=== PATIENT | female | born 1985 | race Hispanic/Latino ===

== ENCOUNTER 2025-05-13 00:55 | Day surgery (SDC) | payer BC, SELFPAY ==
[2025-05-10 14:49] VITALS: BMI 31.9
--- NOTE | 2025-05-10 14:50 | PC.NURSE ---
Report to the Outpatient Waiting Room, entrance under the green pavilion located off [facility], at time _0700_ on date _[id number]_. Planned Procedure Time: _0900_.? Time changes happen often and if your time is changed the preop area will call you the afternoon before. - You and your visitor will be asked to self-screen and do not enter if you have any COVID symptoms. Please call surgeon if you need to reschedule. - A mask is optional within the hospital at this time. Patients may have clear liquids (water, carbonated beverages, clear teas, apple juice) until 3 hours prior to surgery with a maximum of 20 ounces. - No food from midnight until time of surgery and no smoking, or chewing tobacco (or any form of nicotine). No chewing gum, candy or mints. Take only the following medications with a SIP of water on the morning of surgery: ____None DO NOT STOP ANY OF YOUR OTHER PRESCRIPTION MEDICATIONS PRIOR TO SURGERY EXCEPT THE FOLLOWING Hold all vitamins and supplements for 3 days per anesthesiologist. Medications to discontinue per physician Date to take last dose___Stop now____ Please no make-up, nail belgian, hairspray, perfume, deodorant, or body powder the day of surgery.? No jewelry (including any body piercings) or valuables the day of surgery, leave them at home.? Please take a shower or bath the night before, or the morning of, surgery with an antibacterial soap.? Wear comfortable, loose fitting clothing. - Jewelry must be removed prior to entering the operating room.? Rings and piercings that are not removed may be cut off. - The hospital will not accept responsibility for valuables.? - Please leave all valuables, including medications, at home the day of surgery. If you are going home after surgery, a licensed newspaper delivery driver must drive you home.? - NO public transportation without another adult if you receive anesthesia. - We recommend that an adult stay with you for 24 hours following discharge. - We also recommend that you do not drive, make important decision, drink alcoholic beverages, or take any drugs that were not prescribed by your health care provider for at least 24 hours after your discharge time. Follow any additional instructions given to you from your surgeon. Telephone instructions given to ___Cintya__and asked if any additional questions and then verbalized understanding. Patient advised to call surgeon office or pre surgery nurse liaison [phone] if any additional questions.
--- OUTSIDE RECORDS SUMMARY | 2025-05-13 01:00 | XMS_ITS | Data Portability ---
Author Organization [facility] Address [address] [place] [address] [place] [address] Assessment Encounter Date Assessment Date Assessment LastModified by Organization Details LastModified Time 07/05/2024 07/05/2024 Annual gynecological exam performed. Patient will come back in a year unless there are new symptoms. Not available 07/05/2024 16:51:00 Plan of Treatment Reminders Order Date Submit Date Provider Last Modified By Organization Details Last Modified Time Details Appointments SURG Suction D&C 2024 09:00A Chip VILLEGAS MD Not available Not available Not available SURG POST OP 2024 02:15P Chip VILLEGAS MD Not available Not available Not available Lab test, urine 2024 025 [email or web address] [facility], [address], [address], [place], [address], 04/22/2025 16:13:38 CBC w/ auto diff 2023 024 [facility] (Lab), [address], [place], [address], 07/06/2024 12:20:17 CMP, serum or plasma 2023 024 [facility] (Lab), [address], [place], [address], 07/06/2024 12:20:19 lipid panel, blood 2023 024 [facility] (Lab), [address], [place], [address], 07/06/2024 12:20:18 TSH, serum or plasma 2023 024 [facility] (Lab), [address] [facility] [address], [place], [address], 07/06/2024 12:20:18 25-hydrox yvitamin D2 + 25-hydrox yvitamin D3, QN, serum or plasma 2023 024 [facility] (Lab), [address] [facility], [place], [address], 07/06/2024 12:20:20 Referral None recorded. Procedures None recorded. Surgeries dilation & curettage (SURG) 2024 025 [email or web address] [facility], [address], [place], [address], 05/10/2025 13:30:52 Imaging US, obstetric , 1st trimester 2024 025 [id number] [facility], [facility] [address], [place], [address], 04/22/2025 15:56:40 Medication Orders None recorded. Patient TargetsNo targets recorded. Patient InstructionsNo instructions recorded. Reason for Referral None Reported. Results Created Date Observation Date Name Description Value Unit Range Abnormal Flag Note LastModifiedBy Organization Detail LastModifiedTime 07/04/20 23 07/04/2023 IMAGE GUIDE D PAP AND HPV REGAR DLESS image guided Pap, HPV regardless of Pap result SEE RESULT S BELOW CASE REPOR T: Cytol ogy Gynec ologi lizeth Repor t Case: [id number] Autho harriet g Provi trevor: Mauri Villegas MD Colle cted: 07/04 1618 Order ing Locat ion: [place] [facility] Recei mohan: 07/05 0700 First Scree n: Sherm an, [place] Speci men: Scree trish Pap - Image d, Cervi x STATE MENT OF ADEQU ACY: Satis facto ry for evalu ation Trans forma tion zone compo nent prese nt FINAL DIAGN OSIS: Negat gerardo for Intra epith elial Lesio arielle or Laron patton (NIL) . Elect brodykathy wright ron d by [place] Levy on 2022 at 7:32 PM ----- ----- ----- ----- ----- ----- ----- ----- ----- ----- ----- ----- ----- ----- ----- ----- ----- ---- HPV RESUL TS: HPV mRNA E6/E7 : No HPV mRNA Detec jovon NOTE: This high risk HPV mRNA assay detec ts fourt een high- risk HPV types (16, 18, 31, 33, 35, 39, 45, 51, 52, 56, 58, 59, 66, 68) witho ut diffe renti ation . COMME NT: This speci men was revie wed by a Cytot echno logis t and/o r Patho logis t (as indic ated in this repor t) after evalu ation using the Thinp rep Imagi ng Syste m. CLINI LIZETH INFOR MATIO N: Menst rual Statu s: LMP (if appli cable ): Clini lizeth Histo ry/Pr eviou s Pap: Type of Neopl bakari (if appli cable ): Signi fican t Clini lizeth Findi ngs: Other Histo ry: Hormo minna (if appli cable ): PAP EDUCA MAMTA L NOTE: The Pap Test is a scree trish test with an inher ent false negat gerardo rate. Liqui d-bas ed sampl ing may decre ase, but will not elimi jim, false negat gerardo resul ts. A negat gerardo resul t does not precl ude the prese nce and/o r devel opmen t of disea se, since the prese nce of abnor mal cells in the sampl e depen ds on the locat ion of the lesio n and sampl ing techn ique. Magy nued regul ar scree trish is the best metho d of cance r preve ntion . If repor jovon cytol ogic findi ng do not corre late with physi lizeth and/o r histo rical findi ngs, rosi fox ion is recom ryan d, as clini indira whitt nted. Not Available [facility] (Lab) [address], [place], [address], 07/05/2023 20:34:53 07/22/20 23 07/22/2023 CBC W/DIF F WBC 5.6 10'3/ uL 3.6-10 .2 Not Available [facility] (Lab) [address], [place], [address], 07/23/2023 05:06:51 07/22/20 23 07/22/2023 CBC W/DIF F RBC 4.09 10'6/ uL (based on docume nted legal sex) 4.10-5 .30 low Not Available [facility] (Lab) [address], [place], [address], 07/23/2023 05:06:51 07/22/20 23 07/22/2023 CBC W/DIF F HGB 12.8 g/dL (based on docume nted legal sex) 11.9-1 5.8 Not Available [facility] (Lab) [address] [place], [address], 07/23/2023 05:06:51 07/22/20 23 07/22/2023 CBC W/DIF F HCT 39.0 % (based on docume nted legal sex) 37.4-4 8.3 Not Available [facility] (Lab) [address], [place], [address], 07/23/2023 05:06:51 07/22/20 23 07/22/2023 CBC W/DIF F MCV 95.4 fL 82.0-9 9.0 Not Available [facility] (Lab) [address] [place], [address], 07/23/2023 05:06:51 07/22/20 23 07/22/2023 CBC W/DIF F MCH 31.3 pg 27.0-3 3.0 Not Available [facility] (Lab) [address], [place], [address], 07/23/2023 05:06:51 07/22/20 23 07/22/2023 CBC W/DIF F MCHC 32.8 g/dL 32.0-3 6.0 Not Available [facility] (Lab) [address], [place], [address], 07/23/2023 05:06:51 07/22/20 23 07/22/2023 CBC W/DIF F RDW 12.7 % 11.0-1 5.0 Not Available [facility] (Lab) [address] [facility] [address], [place], [address], 07/23/2023 05:06:51 07/22/20 23 07/22/2023 CBC W/DIF F plt 334 10'3/ uL 150-45 0 Not Available [facility] (Lab) [address], [place], [address], 07/23/2023 05:06:51 07/22/20 23 07/22/2023 CBC W/DIF F MPV 10.6 fL 9.8-12 .7 Not Available [facility] (Lab) [address] [facility] [address], [place], [address], 07/23/2023 05:06:51 07/22/20 23 07/22/2023 CBC W/DIF F NRBC's 0.0 % 0 Not Available [facility] (Lab) [address], [place], [address], 07/23/2023 05:06:51 07/22/20 23 07/22/2023 CBC W/DIF F absolute NRBCs 0.0 10'3/ uL 0 Not Available [facility] (Lab) [address], [place], [address], 07/23/2023 05:06:51 07/22/20 23 07/22/2023 CBC W/DIF F neutrophils 63.9 % 37.0-7 2.0 Not Available [facility] (Lab) [address] [facility] [address], [place], [address], 07/23/2023 05:06:51 07/22/20 23 07/22/2023 CBC W/DIF F lymphocytes 26.7 % 16.0-4 8.0 Not Available [facility] (Lab) [address] [facility] [address], [place], [address], 07/23/2023 05:06:51 07/22/20 23 07/22/2023 CBC W/DIF F monocytes 6.8 % 4.0-14 .0 Not Available [facility] (Lab) [address] [facility] [address], [place], [address], 07/23/2023 05:06:51 07/22/20 23 07/22/2023 CBC W/DIF F eosinophils 2.0 % 0.0-9. 0 Not Available [facility] (Lab) [address], [place], [address], 07/23/2023 05:06:51 07/22/20 23 07/22/2023 CBC W/DIF F basophils 0.4 % 0.0-2. 0 Not Available [facility] (Lab) [address], [place], [address], 07/23/2023 05:06:51 07/22/20 23 07/22/2023 CBC W/DIF F immature granulocytes 0.2 % no define d refere nce range Not Available [facility] (Lab) [address], [place], [address], 07/23/2023 05:06:51 07/22/20 23 07/22/2023 CBC W/DIF F absolute neutrophils 3.6 10'3/ uL 1.1-6. 0 Not Available [facility] (Lab) [address], [place], [address], 07/23/2023 05:06:51 07/22/20 23 07/22/2023 CBC W/DIF F absolute lymphocytes 1.5 10'3/ uL 0.7-3. 4 Not Available [facility] (Lab) [address], [place], [address], 07/23/2023 05:06:51 07/22/20 23 07/22/2023 CBC W/DIF F absolute monocytes 0.4 10'3/ uL 0.3-1. 0 Not Available [facility] (Lab) [address], [place], [address], 07/23/2023 05:06:51 07/22/20 23 07/22/2023 CBC W/DIF F absolute eosinophils 0.1 10'3/ uL 0.0-0. 6 Not Available [facility] (Lab) [address], [place], [address], 07/23/2023 05:06:51 07/22/20 23 07/22/2023 CBC W/DIF F absolute basophils 0.0 10'3/ uL 0.0-0. 1 Not Available [facility] (Lab) [address], [place], [address], 07/23/2023 05:06:51 07/22/20 23 07/22/2023 CBC W/DIF F absolute immature granulocytes 0.0 10'3/ uL 0.00-0 .10 2022 2:10 AM: P indic ates parti al resul ts on a panel have been relea sed. Addit ional resul ts will follo w. 2022 2:10 AM: This resul t has been final verif ied. No addit ional or argueta ed resul ts are expec jovon. Not Available [facility] (Lab) [address], [place], [address], 07/23/2023 05:06:51 07/22/20 23 07/22/2023 LIPID PANEL ,AMA (LDL- CALC) total cholesterol 154 mg/dL 0-199 Not Available [facility] (Lab) [address] [place], [address], 07/23/2023 05:06:52 07/22/20 23 07/22/2023 LIPID PANEL ,AMA (LDL- CALC) triglyceride s 199 mg/dL 0.00-1 50.00 high NCEP Refer ence Value s for Trigl yceri carlitos: Opal l: <150 mg/dL Borde rline High: 150 - 199 mg/dL High: 200 - 499 mg/dL Very High: >/= 500 mg/dL Not Available [facility] (Lab) [address], [place], [address], 07/23/2023 05:06:52 07/22/2007/22/2023 LIPID PANEL ,AMA (LDL- CALC) HDL cholesterol 38 mg/dL >40 low Not Available [facility] (Lab) [address], [place], [address], 07/23/2023 05:06:52 07/22/2007/22/2023 LIPID PANEL ,AMA (LDL- CALC) LDL cholesterol 86 mg/dL 0-99 Cutof f value s recom yran d by the Natio nal Nan stero l Educa tion Progr am: PAYAL ABLE: Nan stero l <200 mg/dL LDL <100 mg/dL BORDE RLINE : Nan stero l 200-2 39 mg/dL LDL 101-1 59 mg/dL HIGHE R RISK: Nan stero l >240 mg/dL LDL >160 mg/dL , HDL <40 mg/dL Not Available [facility] (Lab) [address] [place], [address], 07/23/2023 05:06:52 07/22/20 23 07/22/2023 LIPID PANEL ,AMA (LDL- CALC) non-HDL cholesterol 116 mg/dL no refere nce range A reaso nable goal for non-H DL nan stero l is one that is 30 mg/dL highe r than the LDL nan stero l goal. Not Available [facility] (Lab) [address], [place], [address], 07/23/2023 05:06:52 07/22/20 23 07/22/2023 LIPID PANEL ,AMA (LDL- CALC) chol/HDL ratio 4.1 . 0.0-5. 0 On February 08, 2023, [facility] labor atori es argueta ed the equat ion for calcu latin g estim ated low-d ensit y lipop rotei n-cho leste rol (LDL- C) from the Fried george equat ion to the Nessa n/Hop todd equat ion. This new equat ion is only valid for lipid panel s with trigl yceri carlitos < 400 mg/dL . Studi es have demon strat ed that this new equat ion will impro ve the accur acy of LDL-C , espec ially in scena levine when LDL-C leon ntrat ions are relat ively low (< 100 mg/dL ), trigl yceri carlitos are eleva jovon, or patie nt is non-f astin g. Refer ences : - Nessa guzmán, Ray Soliz, Alf Mathias , [facility] tammi lópez, Chaitanya Chadwick, Chaitanya kate, Adalberto zhang , and Shiv Gardiner . 2013. Comp ariso n of a Novel Metho d vs the Fried george Equat ion for Estim ating Low-D ensit y Lipop rotei n Nan stero l Level s from the Stand sarkis Lipid Profi le. ED: The Journ al of the Ameri can Medic al Assoc iatio n 310 (19): 2060- . - Priscila daily V, Marleny J, Merlyn daily A, Yary M, Khurram austin R, Selena daily E, Elsa zhang RS, Abdifatah SR, Nessa guzmán SS. Fast ing Versu s Nonfa sting and Low-D ensit y Lipop rotei n Nan stero l Accur acy. Leopoldou eula n. 2017Oct 18;137 (1):1 0-19. Not Available [facility] (Lab) [address], [place], [address], 07/23/2023 05:06:52 07/22/20 23 07/22/2023 CMP(C OMPRE HENSI VE METAB OLIC PANEL ) sodium 141 mmol/ L 133-14 6 Not Available [facility] (Lab) [address], [place], [address], 07/23/2023 05:06:52 07/22/20 23 07/22/2023 CMP(C OMPRE HENSI VE METAB OLIC PANEL ) potassium 3.6 mmol/ L 3.5-5. 1 Not Available [facility] (Lab) [address], [place], [address], 07/23/2023 05:06:52 07/22/20 23 07/22/2023 CMP(C OMPRE HENSI VE METAB OLIC PANEL ) chloride 105 mmol/ L 98-107 Not Available [facility] (Lab) [address], [place], [address], 07/23/2023 05:06:52 07/22/20 23 07/22/2023 CMP(C OMPRE HENSI VE METAB OLIC PANEL ) carbon dioxide 26 mmol/ L 21-31 Not Available [facility] (Lab) [address] [place], [address], 07/23/2023 05:06:52 07/22/20 23 07/22/2023 CMP(C OMPRE HENSI VE METAB OLIC PANEL ) anion gap 10 mmol/ L 4-13 Not Available [facility] (Lab) [address] [place], [address], 07/23/2023 05:06:52 07/22/20 23 07/22/2023 CMP(C OMPRE HENSI VE METAB OLIC PANEL ) blood urea nitrogen 9 mg/dL 7-25 Not Available [facility] (Lab) [address], [place], [address], 07/23/2023 05:06:52 07/22/20 23 07/22/2023 CMP(C OMPRE HENSI VE METAB OLIC PANEL ) creatinine 0.61 mg/dL 0.60-1 .30 Not Available [facility] (Lab) [address], [place], [address], 07/23/2023 05:06:52 07/22/20 23 07/22/2023 CMP(C OMPRE HENSI VE METAB OLIC PANEL ) egfrcr (CKD-epi 2020) >90 mL/mi n/1.7 3_m2 >=60 Not Available [facility] (Lab) [address], [place], [address], 07/23/2023 05:06:52 07/22/20 23 07/22/2023 CMP(C OMPRE HENSI VE METAB OLIC PANEL ) calcium 9.5 mg/dL 8.3-10 .5 Not Available [facility] (Lab) [address], [place], [address], 07/23/2023 05:06:52 07/22/20 23 07/22/2023 CMP(C OMPRE HENSI VE METAB OLIC PANEL ) glucose 103 mg/dL 70-100 high Not Available [facility] (Lab) [address], [place], [address], 07/23/2023 05:06:52 07/22/20 23 07/22/2023 CMP(C OMPRE HENSI VE METAB OLIC PANEL ) protein, total 7.0 g/dL 6.4-8. 3 Not Available [facility] (Lab) [address], [place], [address], 07/23/2023 05:06:52 07/22/20 23 07/22/2023 CMP(C OMPRE HENSI VE METAB OLIC PANEL ) albumin 4.3 g/dL 3.5-5. 0 Not Available [facility] (Lab) [address], [place], [address], 07/23/2023 05:06:52 07/22/20 23 07/22/2023 CMP(C OMPRE HENSI VE METAB OLIC PANEL ) ALT 15 units /L 9-43 Not Available [facility] (Lab) [address], [place], [address], 07/23/2023 05:06:52 07/22/20 23 07/22/2023 CMP(C OMPRE HENSI VE METAB OLIC PANEL ) alkaline phosphatase 76 units /L 34-104 Not Available [facility] (Lab) [address], [place], [address], 07/23/2023 05:06:52 07/22/20 23 07/22/2023 CMP(C OMPRE HENSI VE METAB OLIC PANEL ) AST 15 units /L 13-39 Not Available [facility] (Lab) [address], [place], [address], 07/23/2023 05:06:52 07/22/20 23 07/22/2023 CMP(C OMPRE HENSI VE METAB OLIC PANEL ) bilirubin, total 0.6 mg/dL 0.2-1. 2 Not Available [facility] (Lab) [address], [place], [address], 07/23/2023 05:06:52 07/22/2007/22/2023 TSH, REFLE X FREE T4 TSH 3.93 uIU/m L 0.30-5 .33 Not Available [facility] (Lab) [address] [place], [address], 07/23/2023 05:06:53 07/22/20 23 07/22/2023 VITAM IN D, 25-OH (TOTA L D2/D3 ) vitamin D, 25-hydroxy, total 19.3 NG/mL 30.0-1 00.0 low Sugge stive of Defic iency : <20 ng/mL Sugge stive of Insuf ficie ncy: 20-29 ng/mL Sugge stive of Suffi cienc y: 30-10 0 ng/mL Sugge stive of Toxic ity: >150 ng/mL Not Available [facility] (Lab) [address], [place], [address], 07/23/2023 05:06:53 07/05/20 24 07/05/2024 CBC W/DIF F WBC 6.1 10'3/ uL 3.5-10 .5 Not Available [facility] (Lab) [address], [place], [address], 07/06/2024 12:20:17 07/05/20 24 07/05/2024 CBC W/DIF F RBC 4.30 10'6/ uL (based on docume nted legal sex) 3.80-5 .20 Not Available [facility] (Lab) [address], [place], [address], 07/06/2024 12:20:17 07/05/20 24 07/05/2024 CBC W/DIF F HGB 13.3 g/dL (based on docume nted legal sex) 11.6-1 5.4 Not Available [facility] (Lab) [address], [place], [address], 07/06/2024 12:20:17 07/05/20 24 07/05/2024 CBC W/DIF F HCT 41.2 % (based on docume nted legal sex) 34.0-4 5.0 Not Available [facility] (Lab) [address], [place], [address], 07/06/2024 12:20:17 07/05/20 24 07/05/2024 CBC W/DIF F MCV 95.8 fL 80.0-9 9.0 Not Available [facility] (Lab) [address], [place], [address], 07/06/2024 12:20:17 07/05/20 24 07/05/2024 CBC W/DIF F MCH 30.9 pg 27.0-3 4.0 Not Available [facility] (Lab) [address], [place], [address], 07/06/2024 12:20:17 07/05/20 24 07/05/2024 CBC W/DIF F MCHC 32.3 g/dL 32.0-3 5.5 Not Available [facility] (Lab) [address], [place], [address], 07/06/2024 12:20:17 07/05/20 24 07/05/2024 CBC W/DIF F RDW 13.1 % 11.0-1 5.0 Not Available [facility] (Lab) [address], [place], [address], 07/06/2024 12:20:17 07/05/20 24 07/05/2024 CBC W/DIF F plt 336 10'3/ uL 150-40 0 Not Available [facility] (Lab) [address], [place], [address], 07/06/2024 12:20:17 07/05/20 24 07/05/2024 CBC W/DIF F MPV 10.5 fL 8.8-12 .1 Not Available [facility] (Lab) [address], [place], [address], 07/06/2024 12:20:17 07/05/20 24 07/05/2024 CBC W/DIF F NRBC's 0.0 % 0.0 Not Available [facility] (Lab) [address], [place], [address], 07/06/2024 12:20:17 07/05/20 24 07/05/2024 CBC W/DIF F absolute NRBCs 0.0 10'3/ uL no refere nce range establ ished Not Available [facility] (Lab) [address], [place], [address], 07/06/2024 12:20:17 07/05/20 24 07/05/2024 CBC W/DIF F neutrophils 55.9 % 34.0-7 3.0 Not Available [facility] (Lab) [address], [place], [address], 07/06/2024 12:20:17 07/05/20 24 07/05/2024 CBC W/DIF F lymphocytes 31.4 % 15.0-5 0.0 Not Available [facility] (Lab) [address], [place], [address], 07/06/2024 12:20:17 07/05/20 24 07/05/2024 CBC W/DIF F monocytes 9.6 % 1.0-15 .0 Not Available [facility] (Lab) [address], [place], [address], 07/06/2024 12:20:17 07/05/20 24 07/05/2024 CBC W/DIF F eosinophils 2.0 % 0.0-8. 0 Not Available [facility] (Lab) [address], [place], [address], 07/06/2024 12:20:17 07/05/20 24 07/05/2024 CBC W/DIF F basophils 0.8 % 0.0-2. 0 Not Available [facility] (Lab) [address], [place], [address], 07/06/2024 12:20:17 07/05/20 24 07/05/2024 CBC W/DIF F immature granulocytes 0.3 % no define d refere nce range Not Available [facility] (Lab) [address] [place], [address], 07/06/2024 12:20:17 07/05/20 24 07/05/2024 CBC W/DIF F absolute neutrophils 3.4 10'3/ uL 1.5-8. 0 Not Available [facility] (Lab) [address] [facility], [place], [address], 07/06/2024 12:20:17 07/05/20 24 07/05/2024 CBC W/DIF F absolute lymphocytes 1.9 10'3/ uL 1.0-4. 0 Not Available [facility] (Lab) [address] [facility], [place], [address], 07/06/2024 12:20:17 07/05/20 24 07/05/2024 CBC W/DIF F absolute monocytes 0.6 10'3/ uL 0.2-1. 0 Not Available [facility] (Lab) [address] [facility], [place], [address], 07/06/2024 12:20:17 07/05/20 24 07/05/2024 CBC W/DIF F absolute eosinophils 0.1 10'3/ uL 0.0-0. 6 Not Available [facility] (Lab) [address] [facility] [address], [place], [address], 07/06/2024 12:20:17 07/05/20 24 07/05/2024 CBC W/DIF F absolute basophils 0.1 10'3/ uL 0.0-0. 3 Not Available [facility] (Lab) [address] [facility] [address], [place], [address], 07/06/2024 12:20:17 07/05/20 24 07/05/2024 CBC W/DIF F absolute immature granulocytes 0.0 10'3/ uL 0.00-0 .10 2023 7:27 AM: P indic ates parti al resul ts on a panel have been relea sed. Addit ional resul ts will follo w. 2023 7:27 AM: This resul t has been final verif ied. No addit ional or argueta ed resul ts are expec jovon. Not Available [facility] (Lab) [address], [place], [address], 07/06/2024 12:20:17 07/05/20 24 07/05/2024 TSH, REFLE X FREE T4 TSH 4.34 uIU/m L 0.30-5 .33 Not Available [facility] (Lab) [address] [place], [address], 07/06/2024 12:20:18 07/05/20 24 07/05/2024 LIPID PANEL ,AMA (LDL- CALC) total cholesterol 156 mg/dL 0-199 Not Available [facility] (Lab) [address] [place], [address], 07/06/2024 12:20:18 07/05/20 24 07/05/2024 LIPID PANEL ,AMA (LDL- CALC) triglyceride s 177 mg/dL 0-150 high NCEP Refer ence Value s for Trigl yceri carlitos: Opal l: <150 mg/dL Borde rline High: 150 - 199 mg/dL High: 200 - 499 mg/dL Very High: >/= 500 mg/dL Not Available [facility] (Lab) [address] [place], [address], 07/06/2024 12:20:18 07/05/20 24 07/05/2024 LIPID PANEL ,AMA (LDL- CALC) HDL cholesterol 46 mg/dL >40 Not Available [facility] (Lab) [address] [place], [address], 07/06/2024 12:20:18 07/05/20 24 07/05/2024 LIPID PANEL ,AMA (LDL- CALC) LDL cholesterol 83 mg/dL 0-99 Cutof f value s recom ryan d by the Natio nal Nan stero l Educa tion Progr am: PAYAL ABLE: Nan stero l <200 mg/dL LDL <100 mg/dL BORDE RLINE : Nan stero l 200-2 39 mg/dL LDL 101-1 59 mg/dL HIGHE R RISK: Nan stero l >240 mg/dL LDL >160 mg/dL , HDL <40 mg/dL Not Available [facility] (Lab) [address] [place], [address], 07/06/2024 12:20:18 07/05/20 24 07/05/2024 LIPID PANEL ,AMA (LDL- CALC) non-HDL cholesterol 110 mg/dL no refere nce range A reaso nable goal for non-H DL nan stero l is one that is 30 mg/dL highe r than the LDL nan stero l goal. Not Available [facility] (Lab) [address], [place], [address], 07/06/2024 12:20:18 07/05/20 24 07/05/2024 LIPID PANEL ,AMA (LDL- CALC) chol/HDL ratio 3.4 . 0.0-5. 0 On February 08, 2023, [facility] labor atori guillermo argueta ed the equat ion for calcu latin g estim ated low-d ensit y lipop rotei n-cho leste rol (LDL- C) from the Fried george equat ion to the Nessa arielle/Hop kins equat ion. This new equat ion is only valid for lipid panel s with trigl yceri carlitos < 400 mg/dL . Studi es have demon strat ed that this new equat ion will impro ve the accur acy of LDL-C , espec ially in scena levine when LDL-C leon ntrat ions are relat ively low (< 100 mg/dL ), trigl yceri carlitos are eleva jovon, or patie nt is non-f astin g. Refer ences : - Nessa guzmán, Ray Soliz, Alf Mathias , [facility] l[facility], Chaitanya Chadwick, Chaitanya kate, [facility] , and Shiv Gardiner . 2013. Comp ariso n of a Novel Metho d vs the Fried george Equat ion for Estim ating Low-D ensit y Lipop rotei n Nan stero l Level s from the Stand sarkis Lipid Profi le. ED: The Journ al of the Ameri can Medic al Assoc iatio n 310 (19): 2060- . - Priscila daily V, Marleny Carolina, Merlyn Fletcher, Yary Saunders, Khurram austin R, Selena daily E, Elsa zhang RS, Gardiner SR, Nessa n SS. Fast ing Versu s Nonfa sting and Low-D ensit y Lipop rotei n Nan stero l Accur acy. Circu latcydney n. 2017Oct 18;137 (1):1 0-19. Not Available [facility] (Lab) [address], [place], [address], 07/06/2024 12:20:18 07/05/20 24 07/05/2024 CMP(C OMPRE HENSI VE METAB OLIC PANEL ) sodium 138 mmol/ L 133-14 6 Not Available [facility] (Lab) [address], [place], [address], 07/06/2024 12:20:19 07/05/20 24 07/05/2024 CMP(C OMPRE HENSI VE METAB OLIC PANEL ) potassium 3.8 mmol/ L 3.5-5. 1 Not Available [facility] (Lab) [address], [place], [address], 07/06/2024 12:20:19 07/05/20 24 07/05/2024 CMP(C OMPRE HENSI VE METAB OLIC PANEL ) chloride 104 mmol/ L 98-107 Not Available [facility] (Lab) [address], [place], [address], 07/06/2024 12:20:19 07/05/20 24 07/05/2024 CMP(C OMPRE HENSI VE METAB OLIC PANEL ) carbon dioxide 26 mmol/ L 21-31 Not Available [facility] (Lab) [address] [place], [address], 07/06/2024 12:20:19 07/05/20 24 07/05/2024 CMP(C OMPRE HENSI VE METAB OLIC PANEL ) anion gap 8 mmol/ L 4-13 Not Available [facility] (Lab) [address] [place], [address], 07/06/2024 12:20:19 07/05/20 24 07/05/2024 CMP(C OMPRE HENSI VE METAB OLIC PANEL ) blood urea nitrogen 9 mg/dL 7-25 Not Available [facility] (Lab) [address], [place], [address], 07/06/2024 12:20:19 07/05/20 24 07/05/2024 CMP(C OMPRE HENSI VE METAB OLIC PANEL ) creatinine 0.60 mg/dL 0.60-1 .30 Not Available [facility] (Lab) [address], [place], [address], 07/06/2024 12:20:19 07/05/20 24 07/05/2024 CMP(C OMPRE HENSI VE METAB OLIC PANEL ) egfrcr (CKD-epi 2020) >90 mL/mi n/1.7 3_m2 >=60 Not Available [facility] (Lab) [address], [place], [address], 07/06/2024 12:20:19 07/05/20 24 07/05/2024 CMP(C OMPRE HENSI VE METAB OLIC PANEL ) calcium 9.4 mg/dL 8.3-10 .5 Not Available [facility] (Lab) [address], [place], [address], 07/06/2024 12:20:19 07/05/20 24 07/05/2024 CMP(C OMPRE HENSI VE METAB OLIC PANEL ) glucose 80 mg/dL 70-100 Not Available [facility] (Lab) [address], [place], [address], 07/06/2024 12:20:19 07/05/20 24 07/05/2024 CMP(C OMPRE HENSI VE METAB OLIC PANEL ) protein, total 7.3 g/dL 6.4-8. 3 Not Available [facility] (Lab) [address], [place], [address], 07/06/2024 12:20:19 07/05/20 24 07/05/2024 CMP(C OMPRE HENSI VE METAB OLIC PANEL ) albumin 4.6 g/dL 3.5-5. 0 Not Available [facility] (Lab) [address], [place], [address], 07/06/2024 12:20:19 07/05/20 24 07/05/2024 CMP(C OMPRE HENSI VE METAB OLIC PANEL ) ALT 14 units /L 9-43 Not Available [facility] (Lab) [address], [place], [address], 07/06/2024 12:20:19 07/05/20 24 07/05/2024 CMP(C OMPRE HENSI VE METAB OLIC PANEL ) alkaline phosphatase 72 units /L 34-104 Not Available [facility] (Lab) [address], [place], [address], 07/06/2024 12:20:19 07/05/20 24 07/05/2024 CMP(C OMPRE HENSI VE METAB OLIC PANEL ) AST 13 units /L 13-39 Not Available [facility] (Lab) [address], [place], [address], 07/06/2024 12:20:19 07/05/20 24 07/05/2024 CMP(C OMPRE HENSI VE METAB OLIC PANEL ) bilirubin, total 0.4 mg/dL 0.2-1. 2 Not Available [facility] (Lab) [address], [place], [address], 07/06/2024 12:20:19 07/05/20 24 07/05/2024 VITAM IN D, 25-OH (TOTA L D2/D3 ) vitamin D, 25-hydroxy, total 26.1 NG/mL 30.0-1 00.0 low Sugge stive of Defic iency : <20 ng/mL Sugge stive of Insuf ficie ncy: 20-29 ng/mL Sugge stive of Suffi cienc y: 30-10 0 ng/mL Sugge stive of Toxic ity: >150 ng/mL Not Available [facility] (Lab) [address], [place], [address], 07/06/2024 12:20:20 07/05/20 24 07/05/2024 IMAGE GUIDE D PAP AND HPV REGAR DLESS image guided Pap, HPV regardless of Pap result SEE RESULT S BELOW CASE REPOR T: Cytol ogy Gynec ologi lizeth Repor t Case: [id number] Autho harriet g Provi trevor: Mauri Villegas MD Colle cted: 07/05 1644 Order ing Locat ion: [place] [facility] Recei mohan: 07/06 0918 First Bobby n: Shavon Oliveira, CT Speci men: Bobby chambers Pap - Image d, Cervi x STATE MENT OF ADEQU ACY: Satis facto ry for evalu ation Trans forma tion zone compo nent prese nt ----- ----- ----- ----- ----- ----- ----- ----- ----- ----- ----- ----- ----- ----- ----- ----- ----- ---- FINAL DIAGN OSIS: Negat gerardo for Intra epith elial Rashmi guzmán or Laron patton (NIL) . Elect jabari contreras by Shavon Oliveira, CT on 2023 at 3:22 PM ----- ----- ----- ----- ----- ----- ----- ----- ----- ----- ----- ----- ----- ----- ----- ----- ----- ---- HPV RESUL TS: HPV mRNA E6/E7 : No HPV mRNA Detec jovon NOTE: This high risk HPV mRNA assay detec ts fourt een high- risk HPV types (16, 18, 31, 33, 35, 39, 45, 51, 52, 56, 58, 59, 66, 68) witho ut diffe renti ation . COMME NT: This speci men was revie wed by a Cytot echno logis t and/o r Patho logis t (as indic ated in this repor t) after evalu ation using the Thinp rep Imagi ng Syste m. CLINI LIZETH INFOR MATIO N: Menst rual Statu s: LMP (if appli cable ): Clini lizeth Histo ry/Pr eviou s Pap: Type of Neopl bakari (if appli cable ): Signi fican t Clini lizeth Findi ngs: Other Histo ry: Hormo minna (if appli cable ): PAP EDUCA MAMTA L NOTE: The Pap Test is a scree trish test with an inher ent false negat gerardo rate. Liqui d-bas ed sampl ing may decre ase, but will not elimi jim, false negat gerardo resul ts. A negat gerardo resul t does not precl ude the prese nce and/o r devel opmen t of disea se, since the prese nce of abnor mal cells in the sampl e depen ds on the locat ion of the lesio n and sampl ing techn ique. Magy nued regul ar scree trish is the best metho d of cance r preve ntion . If repor jovon cytol ogic findi ng do not corre late with physi lizeth and/o r histo rical findi ngs, furth er inves tigat ion is recom ryan d, as clini indira warrernie nted. Not Available [facility] (Lab) [address], [place], [address], 07/12/2024 16:27:01 03/29/20 25 03/29/2025 BHCG, QUANT ITATI VE B-HCG 1761.0 mIU/m L 0.0-4. 9 high This assay was perfo rmed using [employer] ratio n reage nts and test kits. Value s obtai benson with other assay metho ds or kits canno t be used inter argueta eably . Refer ence Range s: Non-p regna nt, preme nopau jannette women : 0.0-4 .9 mIU/m L Postm enopa usal women : 0.0-7 .0 mIU/m L Opal l Pregn latrell: Gesta mamta l Age bHCG Conc. - mIU/m L 3 Weeks 5.8 - 71.7 4 Weeks 9.5 - 750 5 Weeks 217-7 138 6 Weeks 158 - 31,79 5 7 Weeks 3,697 - 162,5 63 8 Weeks 32,06 5 - 149,5 71 9 Weeks 63,80 3 - 151,4 10 10 Weeks 46,50 9 - 186,9 77 12 Weeks 27,83 2 - 210,6 12 14 Weeks 13,95 0 - 62,53 0 15 Weeks 12,03 9 - 70,97 1 16 Weeks 9,040 - 56,45 1 17 Weeks 8,175 - 55,86 8 18 Weeks 8,099 - 58,17 6 Not Available [facility] (Lab) [address], [place], [address], 03/30/2025 06:34:18 04/22/20 25 04/22/2025 pregn latrell test, urine HCG positi ve Not Available [facility] [address], [place], [address], 04/22/2025 16:13:21 04/22/20 25 04/22/2025 US, obste tric, 1st trime ster No observ ation record ed. [email or web address] [facility] [address], [place], [address], 04/22/2025 18:25:22 04/22/20 25 04/22/2025 US, obste tric, 1st trime ster No observ ation record ed. [email or web address] [address], [place], [address], 04/22/2025 18:54:03 Result Notes None recorded. Problems Name Problem SNOMED Code Status Onset Date Resolution Date Notes Provider Name and Address Organization Details Recorded Time Specializ ed medical examinati on Active 2013 Gynecolog ical Examinati on;Record ed Elsewhere : No Locati on: [facility] So urce: EHR Chron ic: N Practic e ID: 0001 Bill able Time: 02:15:00 PM Not Available [facility] 0 21:24:05 Overweigh t 424896670 Active 2013 Overweigh t;Recorde d Elsewhere : No Locati on: [facility] So urce: EHR Chron ic: N Practic e ID: 0001 Bill able Time: 02:15:00 PM Not Available [facility] 0 21:24:08 Screening for malignant neoplasm of cervix Active 2013 Pap Smear;Pra ctice ID: 0001 Not Available [facility] 0 21:24:08 Abnormal cervical Papanicol aou smear with human papilloma virus deoxyribo nucleic acid detected 086939843 Active 2013 Cervical high risk human papilloma virus (HPV) DNA test positive; Recorded Elsewhere : No Locati on: [facility] So urce: EHR Chron ic: N Practic e ID: 0001 Bill able Time: 02:46:03 PM Not Available [facility] 0 21:24:[address] Concept Active 2016 Encntr for general adult medical exam w/o abnormal findings; Recorded Elsewhere : No Locati on: [facility] So urce: EHR Chron ic: N Practic e ID: 0001 Bill able Time: 10:30:00 AM Not Available [facility] 0 21:24:06 Disorder of breast 00995858 Active 2016 Disorder of breast, unspecifi ed;Record ed Elsewhere : No Locati on: [facility] So urce: EHR Chron ic: N Practic e ID: 0001 Bill able Time: 10:30:00 AM Not Available [facility] 0 21:24:[address] Concept Active 2016 Encntr for blueprint trimmer exam (general) (routine) w abnormal findings; Practice ID: 0001 Not Available [facility] 0 21:24:09 Gestation less than 9 weeks 925493981 Active 2018 Less than 8 weeks gestation of ;Recorded Elsewhere : No Locati on: [facility] So urce: EHR Chron ic: N Practic e ID: 0001 Bill able Time: 03:15:00 PM Not Available [facility] 0 21:24:02 detection examinati on Active 2018 Encounter for test, result positive; Recorded Elsewhere : No Locati on: [facility] So urce: EHR Chron ic: N Practic e ID: 0001 Bill able Time: 03:15:00 PM Not Available [facility] 0 21:24:[address] Concept Active 2018 Encntr for blueprint trimmer exam (general) (routine) w/o abn findings; Recorded Elsewhere : No Locati on: [facility] So urce: EHR Chron ic: N Practic e ID: 0001 Bill able Time: 02:30:00 PM Not Available [facility] 0 21:24:04 screening Active 2018 Encounter for other specified screening ;Recorded Elsewhere : No Locati on: [facility] So urce: EHR Chron ic: N Practic e ID: 0001 Bill able Time: 11:00:00 AM Not Available [facility] 0 21:24:04 , childbirt h and puerperiu m finding Active 2018 Encntr for suprvsn of normal first preg, first trimester ;Practice ID: 0001 Not Available [facility] 0 21:24:09 , childbirt h and puerperiu m finding Active 2018 Encntr for suprvsn of normal first preg, second trimester ;Recorded Elsewhere : No Locati on: [facility] So urce: EHR Chron ic: N Practic e ID: 0001 Bill able Time: 11:15:00 AM Not Available [facility] 0 21:24:07 screening for malformat ion Active 2018 Encounter for screening for malformat ions;Marv rded Elsewhere : No Locati on: [facility] So urce: EHR Chron ic: N Practic e ID: 0001 Bill able Time: 01:00:00 PM Not Available [facility] 0 21:24:03 Gestation period, 30 weeks 55504421 Active 2018 30 weeks gestation of ;Recorded Elsewhere : No Locati on: [facility] So urce: EHR Chron ic: N Practic e ID: 0001 Bill able Time: 02:30:00 PM Not Available [facility] 0 21:24:02 Diet education Active 2018 Dietary counselin g and surveilla nce;Recor ded Elsewhere : No Locati on: [facility] So urce: EHR Chron ic: N Practic e ID: 0001 Bill able Time: 02:30:00 PM Not Available [facility] 0 21:24:05 Dietary managemen t surveilla nce Active 2018 Dietary counselin g and surveilla nce;Recor ded Elsewhere : No Locati on: [facility] So urce: EHR Chron ic: N Practic e ID: 0001 Bill able Time: 02:30:00 PM Not Available [facility] 0 21:24:05 Gestation period, 32 weeks 5898634 Active 2018 32 weeks gestation of ;Recorded Elsewhere : No Locati on: [facility] So urce: EHR Chron ic: N Practic e ID: 0001 Bill able Time: 04:30:00 PM Not Available [facility] 0 21:24:02 Gestation period, 33 weeks 60619393 Active 2018 33 weeks gestation of ;Recorded Elsewhere : No Locati on: [facility] So urce: EHR Chron ic: N Practic e ID: 0001 Bill able Time: 04:00:00 PM Not Available [facility] 0 21:24:04 Gestation al diabetes mellitus 22728076 Active 2018 Gestation al diabetes mellitus in , unsp control;R ecorded Elsewhere : No Locati on: [facility] So urce: EHR Chron ic: N Practic e ID: 0001 Bill able Time: 01:00:00 PM Not Available [facility] 0 21:24:02 Gestation period, 34 weeks 84420046 Active 2018 34 weeks gestation of ;Recorded Elsewhere : No Locati on: [facility] So urce: EHR Chron ic: N Practic e ID: 0001 Bill able Time: 01:00:00 PM Not Available [facility] 0 21:24:02 Gestation period, 35 weeks 13691426 Active 2018 35 weeks gestation of ;Recorded Elsewhere : No Locati on: [facility] So urce: EHR Chron ic: N Practic e ID: 0001 Bill able Time: 01:00:00 PM Not Available [facility] 0 21:24:06 Gestation period, 36 weeks 49783609 Active 2018 36 weeks gestation of ;Recorded Elsewhere : No Locati on: [facility] So urce: EHR Chron ic: N Practic e ID: 0001 Bill able Time: 04:30:00 PM Not Available [facility] 0 21:24:06 Gestation period, 37 weeks 23699971 Active 2018 37 weeks gestation of ;Recorded Elsewhere : No Locati on: [facility] So urce: EHR Chron ic: N Practic e ID: 0001 Bill able Time: 03:00:00 PM Not Available [facility] 0 21:24:05 Gestation period, 38 weeks 35469609 Active 2018 38 weeks gestation of ;Recorded Elsewhere : No Locati on: [facility] So urce: EHR Chron ic: N Practic e ID: 0001 Bill able Time: 03:00:00 PM Not Available [facility] 0 21:24:03 Normal in multigrav [place] 91461278665 4106 Active 2018 Encounter for suprvsn of normal , third trimester ;Recorded Elsewhere : No Locati on: [facility] So urce: EHR Chron ic: N Practic e ID: 0001 Bill able Time: 04:00:00 PM Not Available [facility] 0 21:24:02 Gestation period, 39 weeks 18758890 Active 2018 39 weeks gestation of ;Recorded Elsewhere : No Locati on: [facility] So urce: EHR Chron ic: N Practic e ID: 0001 Bill able Time: 04:00:00 PM Not Available [facility] 0 21:24:04 Failure of cervical dilation 5172082 Active 2018 Primary inadequat e contracti ons;Pract ice ID: 0001 Not Available [facility] 0 21:24:12 Term delivered 42280692 Active 2018 Encounter for full-term uncomplic ated delivery; Practice ID: 0001 Not Available [facility] 0 21:24:13 Finding of contents of cervix 586937454 Active 2018 Weeks of gestation of not specified ;Practice ID: 0001 Not Available [facility] 0 21:24:13 Gestation period, 40 weeks 63381170 Active 2018 40 weeks gestation of ;Practice ID: 0001 Not Available [facility] 0 21:24:13 Wound dehiscenc e Active 2018 Disruptio n of wound, unspecifi ed, initial encounter ;Recorded Elsewhere : No Locati on: [facility] So urce: EHR Chron ic: N Practic e ID: 0001 Bill able Time: 10:15:00 AM Not Available [facility] 0 21:24:07 Procedure on genitouri nary system Active 2018 Encounter for surgical aftercare following surgery on the genitouri nary system;Re corded Elsewhere : No Locati on: [facility] So urce: EHR Chron ic: N Practic e ID: 0001 Bill able Time: 03:45:00 PM Not Available [facility] 0 21:24:03 Postopera tive care Active 2018 Encounter for surgical aftercare following surgery on the genitouri nary system;Re corded Elsewhere : No Locati on: [facility] So urce: EHR Chron ic: N Practic e ID: 0001 Bill able Time: 03:45:00 PM Not Available [facility] 0 21:24:03 Lochia finding Active 2018 Encounter for routine postpartu m follow-up ;Recorded Elsewhere : No Locati on: [facility] So urce: EHR Chron ic: N Practic e ID: 0001 Bill able Time: 02:15:00 PM Not Available [facility] 0 21:24:04 Clinical finding Active 2018 Presence of (intraute rine) contracep tive device;Re corded Elsewhere : No Locati on: [facility] So urce: EHR Chron ic: N Practic e ID: 0001 Bill able Time: 02:45:00 PM Not Available [facility] 0 21:24:03 Insertion of intrauter ine contracep tive device Active 2018 Encounter for insertion of intrauter ine contracep tive device;Re corded Elsewhere : No Locati on: [facility] So urce: EHR Chron ic: N Practic e ID: 0001 Bill able Time: 02:45:00 PM Not Available [facility] 0 21:24:06 Contracep tive sheath status 470972064 Active 2019 Encounter for routine checking of IUD;Recor ded Elsewhere : No Locati on: [facility] So urce: EHR Chron ic: N Practic e ID: 0001 Bill able Time: 02:45:00 PM Not Available [facility] 0 21:24:04 Problem Notes None recorded. Procedures Surgical History Date Name Laterality Status Provider Name and Address Organization Details Recorded Time 3 IUD Removal completed Richard Villegas MD [address], [place], [address], [facility] 07/22/2023 15:30:36 3 Date of Last Pap Smear completed Ling Mc [facility] 07/22/2023 15:02:33 9 Caesarean Section completed Susana Goldsmith [facility] 07/05/2024 16:54:00 Imaging Results None recorded. Procedure Notes None recorded. Medical Equipment None Reported. Allergies Allergen ID Allergen Name Allergen Category Reaction Reaction Severity Criticality Documentation Date Start Date Code Code System Note Provider Name and Address Organization Details Recorded Time 68407 Milk (substanc e) food,medi cation Not available Not available Not available 07/02/2023 63048 002 SNOMED Ling Mc ailyn [facility] 3 09:32:10 Medications Name Sig Start Date Stop Date Status Note LastModified by Organization Details LastModified Time Mirena 21 mcg/24 hr (up to 8 years) 52 mg intrauter ine device Take by intraute rine route. 07/22 completed Not Available Not Available Not Available metformin 500 mg tablet TAKE 1 TABLET BY MOUTH ONCE NIGHTLY AT BEDTIME 09/28 completed Prescrib ed Elsewher e: No Locat ion: [facility] odify By: madan Encounjarred r DateTime : 08/07/20 01:03:35 PM Not Available Not Available Not Available glyburide 2.5 mg tablet take 1 tablet by oral route before bed 07/11 completed Prescrib ed Elsewher e: No Locat ion: [facility] odify By: kurt cheney DateTime : 07/09/20 04:30:00 PM Not Available Not Available Not Available hydrocodo ne 5 mg-acetam inophen 325 mg tablet take 1-2 tablet by oral route every 6 hours as needed for pain 09/28 completed Prescrib ed Elsewher e: No Locat ion: [facility] odify By: madan Encounjarred r DateTime : 08/31/20 19 09:25:26 AM Not Available Not Available Not Available Metrogel Vaginal 0.75 % (37.5 mg/5 gram) insert 1 applicat orful by vaginal route for 5 nights at bedtime 03/19 completed Prescrib ed Elsewher e: No Locat ion: [facility] odify By: madan Encounjarred r DateTime : 10/29/19 17 08:23:15 AM Not Available Not Available Not Available ergocalci ferol (vitamin D2) 1,250 mcg (50,000 unit) capsule TAKE 1 CAPSULE EVERY WEEK BY ORAL ROUTE. 07/05 completed Not Available Not Available Not Available 11/05 (28) 1 mg-20 mcg (21)/75 mg (7) tablet take 1 tablet by oral route every day 03/19 completed Prescrib ed Elsewher e: No Locat ion: [facility] odify By: madan Encounte r DateTime : 10/11/20 14 09:06:37 AM Not Available Not Available Not Available Vitamin D active Not Available Not Shefali ilable Not Available Vitamins and Minerals active Not Available Not Available Not Available Lo Loestrin Fe 1 mg-10 mcg (24)/10 mcg (2) tablet take 1 tablet by oral route every day 03/19 completed Prescrib ed Elsewher e: No Locat ion: [facility] odify By: madan Rubio r DateTime : 07/10/20 14 02:15:00 PM Not Available Not Available Not Available Triveen-D uo DHA 29 mg-1 mg-400 mg oral pack take 1 by Oral route 11/19 completed Prescrib ed Elsewher e: No Locat ion: [facility] odify By: madan Rubio r DateTime : 10/26/19 17 10:30:00 AM Not Available Not Available Not Available Fora [id number] 10-D20 strips-la ncets 30 gauge combo pack checking BS QID fasting and 1hr pp 09/28 completed Prescrib ed Elsewher e: No Locat ion: [facility] odify By: madan Rubio r DateTime : 06/14/20 19 10:40:15 AM Not Available Not Available Not Available Vitals Date Recorded Body height Body mass index (BMI) Body weight Systolic And Diastolic Provider Name and Address Organization Details Last Updated DateTime 04/22/2025 160.02 cm 26.9 kg/m2 56372.04 g 120/85 mm[Hg] YUAN Villagomez [facility] 04/22/2025 16:06:18 Date Recorded Body height Body mass index (BMI) Body weight Systolic And Diastolic Provider Name and Address Organization Details Last Updated DateTime 05/09/2025 160.02 cm 26.9 kg/m2 96035.04 g 117/73 mm[Hg] Susana Goldsmith [facility] 05/09/2025 17:45:22 Date Recorded Body height Body mass index (BMI) Body weight Systolic And Diastolic Provider Name and Address Organization Details Last Updated DateTime 07/05/2024 160.02 cm 31.5 kg/m2 16172.44 g 106/70 mm[Hg] Susana Goldsmith [facility] 07/05/2024 16:51:35 Date Recorded Body height Body mass index (BMI) Body weight Systolic And Diastolic Provider Name and Address Organization Details Last Updated DateTime 07/22/2023 160.02 cm 29.8 kg/m2 62681.52 g 111/70 mm[Hg] Ling Mc [facility] 07/22/2023 15:01:27 Social History Question Answer Notes LastModified by Organizat ion Details LastModified Time Tobacco Smoking Status Former Smoker Ling robertson, [facility] 07/02/2023 09:42:38 Are You Blind Or Do You Have Difficulty Seeing? No Information not available 07/05/2024 What Is Your Level Of Caffeine Consumption? None Information not available 07/05/2024 In The 14 Days Before Symptom Onset, Have You Had Close Contact With A Laboratory-confir med COVID-19 While That Case Was Ill? No Information not available 07/05/2024 In The 14 Days Before Symptom Onset, Have You Had Close Contact With A Person Who Is Under Investigation For COVID-19 While That Person Was Ill? No Information not available 07/05/2024 Have You Been To An Area Known To Be High Risk For COVID-19? No Information not available 07/05/2024 Are You Deaf Or Do You Have Serious Difficulty Hearing? No Information not available 07/05/2024 What Type Of Diet Are You Following? VEGAN Information not available 07/05/2024 What Is The Highest Grade Or Level Of School You Have Completed Or The Highest Degree You Have Received? [id number] Information not available 07/05/2024 When Did You Quit Smoking? 1-5yearssi ncelastcig arette Around 2019 [email or web address] Information not available 07/02/2023 Are There Any Guns Present In Your Home? No Information not available 07/05/2024 Do You Use Protection During Sex? No Information not available 07/05/2024 Do You Use Your Seat Belt Or Car Seat Routinely? Yes Information not available 07/05/2024 Do You Have Smoke And Carbon Monoxide Detectors In Your Home? Yes Information not available 07/05/2024 How Much Tobacco Do You Smoke? No Information not available 07/05/2024 Do You Use Sunscreen Routinely? No Information not available 07/05/2024 Have You Used IV Drugs? No Information not available 07/05/2024 Sex: Unknown Functional Status Question Answer Note LastModified by Organizat ion Details LastModified Time Do you use any illicit or recreational drugs? No Information not available 07/05/2024 What is your level of alcohol consumption? None Information not available 07/05/2024 Are you able to walk? 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 Occasional Information not available 07/05/2024 Mental Status Question Answer Note LastModified by Organization D etails LastModified Time Do you feel stressed (tense, restless, nervous, or anxious, or unable to sleep at night)? [id number] Information not available 07/05/2024 Family History Relationship Description Onset Age of this Age Resolved Age Notes LastModified by Organization Details LastModified Time Maternal Grandmother Hypertensive disorder [email or web address] Not available 2022 09:33:30 Mother Hypertensive disorder [email or web address] Not available 2022 09:33:30 Medical History No medical history recorded. Gynecological History Statement/Question Response Flow Moderate Date of LMP 02/23/2025 N Was last menstrual period normal Y STIs/STDs N HPV Vaccine N Duration of Flow (days) 4 Current Control Method None Age at First Child 34 Are cycles usually normal Y Frequency of Cycle (Q days) 25 Sexually Active? Y None Menses Monthly Y Age of first menstrual cycle 12 Date of Last Pap Smear 07/04/2023 Sexual Problems? N Desired Control Method N/A LMP Definite N Obstetrics History GPAL:G 2 P 1 0 1 1 Type Value Full Term 1 Spontaneous 1 Living 1 Total 2 Past Encounters Encounter ID Performer Location Encounter Start Date Encounter Closed Date Diagnosis/Indication Diagnosis SNOMED-CT Code Diagnosis ICD10 Code Diagnosis Note [id number] Richard Villegas MD [place] [address],[facility] [place] [address] 07/02/2023 09:25:19 07/02/2023 10:35:04 Gynecologic examination 00118897 Z01.419 Annual gynecologi lizeth exam performed. Patient will come back in a year unless there are new symptoms. Suggest Calcium with Vitamin D if not eating in diet. Patient advised to get annual flu shot. Recommend yearly physicals and preform monthly breast exams. Genetic testing is available for patients with family history of cancer. Engage in safe sexual practices, use condoms. Encouraged to have daily exercise. Avoid tobacco and illicit drugs, moderation of alcohol. If BMI greater than 25 dietary consult advised. If you have any questions please call or email. mammogram- na colon cancer screening - na DEXA scan- na Pap smear-toda ylaborator y evaluation -today [id number] Richard Villegas MD [place] [address],[place] [address] 07/05/2024 15:34:51 07/05/2024 17:37:16 Gynecologic examination [id number] Z01.419 Z11.51 Annual gynecologi lizeth exam performed. Patient will come back in a year unless there are new symptoms. Suggest Calcium with Vitamin D if not eating in diet. Patient advised to get annual flu shot. Recommend yearly physicals and preform monthly breast exams. Genetic testing is available for patients with family history of cancer. Engage in safe sexual practices, use condoms. Encouraged to have daily exercise. Avoid tobacco and illicit drugs, moderation of alcohol. If BMI greater than 25 dietary consult advised. If you have any questions please call or email. mammogram- declined colon cancer screening - na DEXA scan- na Pap smear-toda ylaborator y evaluation -today [id number] Richard Villegas MD [place] [address],[place] [address] 07/22/2023 14:24:24 07/22/2023 15:35:39 Contraception care management [id number] Z30.9 IUD was removed. She tolerated it well [id number] ARSH DAS MD [place] [address],[place] [address] 04/22/2025 14:49:52 04/22/2025 15:38:31 Missed miscarriage [id number] O02.1 Z3A.01 [id number] ARSH DAS MD [place] [address] [address] 04/22/2025 14:50:19 04/23/2025 17:07:33 Unprotected sexual intercourse 1742307 Z72.51 Miscarriage [id number] O03 .9 - US c/w missed miscarriag e today, no FHT with +FP- denies cramping or bleeding- discussed risks and benefits of expectant vs medical vs surgical management - discussed bleeding precaution s- patient desires expectant management at this time, anna contreras risks of this management options and return precaution s [id number] Richard Villegas MD [place] [address] [address] 05/09/2025 17:23:32 05/11/2025 11:13:58 Missed miscarriage 70343304 O02.1 39-year-ol d female with missed miscarriag e. We have agreed to perform suction D&C. She understand s risks, benefits, and alternativ es. She has completed the informed consent process and is ready to proceed. Health Concerns Section Related Observation LastModified by Organization Detai ls LastModified Time None Recorded Concern Status LastModified by Organization Details LastModified Time None Recorded Advance Directives Directive None Recorded Payers Insurance Date Sequence Insurance Name Policy Number Policy Gould Covered Member ID Gould Member ID Guarantor Name 05/11/2025 1 [facility] (PP[facility]) [id number] 1 Bel Brian [id number] [address] Brian Notes Date Note Type Note Provider Name and Address Organization Details Recorded Time 07/22/20 23 text/htm l 37-year-old female presents for IUD removal. Richard Villegas MD [address], [place], [address], [facility] 07/22/2023 15:33:55 07/05/20 24 text/htm l Annual GYNReported by PatientHistoryFor history, patient reportsno gynecologic complaints.Genitourinary symptomsFor menstrual cycle, patient reportsnormal menses. For urinary symptoms, patient reportsno hematuria. For vulva, patient reportsno genital lesion. For vagina, patient reportsnormal vaginal discharge.Breast symptomsFor breast, patient reportsno breast painandno breast lump.Endocrine symptomsFor sexual complaints, patient reportsno sexual complaintsandno pain during intercourse. For menopausal symptoms, patient reportsno menopausal symptomsandnormal vaginal lubrication.Psychological symptomsFor psychological symptoms, patient reportsno depressionandno anxiety.Preventative measuresFor preventive measures, patient reportsencourage self breast examinationandencourage regular exercise. Richard Villegas MD [address], [place], [address], [facility] 07/05/2024 17:35:13 04/22/20 25 text/htm l Patient presents today for ultrasound follow up after US today demonstrated missed miscarriage with no heart tones. She denies cramping or bleeding. No other medical hx. Hx of FT PLTCS in 2019, uncomplicated. ARSH DAS MD [address], [place], [address], [facility] 04/23/2025 16:56:38 05/09/20 25 text/htm l this patient is a 39 year old female with a missed . We discussed the findings. They are conclusive. We discussed the frequency of miscarriage. We discussed the etiology in and natural history miscarriage. talked about her future fertility and pregnancies. We discussed treatment options. she understands her treatment options. She understands there are medical and surgical treatment options. She understands that observation for spontaneous miscarriages reasonable as well. We talked about the risk and benefits of each option. Talked about these in detail. We spent 25 minutes [id number]. patient has been aware of missed miscarriage for 2 weeks and has been waiting to pass the products conception. At this time she would like to move forward with suction D&C. The patient understands the procedure. The procedure was described to the patient in great detail. the patient also understands the risks. The risks were also explained in detail. She understands that injuries May occur during surgery. She understands these injuries can result in hospitalization, more surgery, and severe illness. She understands there is risk of hemorrhage and infection. Richard Villegas MD [address], [place], [address], [facility] [place] 05/10/2025 17:49:48 OBGyn Episode Ob Episode Information Episode Created Date Number of Fetuses Patient Bloodtype Patient rh Status Prepregnancy Weight lbs Domestic Partner Domestic Partner Phone Father Name Traffic Circuit Engineer Status 05/09/20 25 1 CLOSED Fetus Data First Name Last Name Admitted to NICU Weight (g) Sex Living Outcome Pediatric Complications Fetus ID Race Codes Race Delivery Type , Spontane ous [id number] Sergo Calculation Initial Sergo Date Initial Exam Date Initial Exam Provider Initial Ultrasound Date Last Menstrual Period Date Ultra Sound Weeks Gestation 0 Eighteen To Twenty Week Sergo Update Ultra Sound Date Fundal Height At Umbil Quickening Date Ultra Sound Latest Weeks Gestation Final Sergo Confirmed By Final Sergo Confirmed Date Final Sergo Date Ultra Sound Latest Days Gestation 0 0 Menstrual History Last Menstrual Date Menses Monthly On Bcp Conception Prior Menses Frequency Hcg Plus Date Menarche Onset Age Delivery Information Delivery Date Delivery Type Labor Anesthesia Weeks Gestation Incision Type Labor Labor Length Hrs Delivered By Post Complications Tubal Sterilization Discharge Date Comments 5 Discharge Information Feeding Method Contraceptive Method Maternal HG B and HCT Levels Ob Episode Information Episode Created Date Number of Fetuses Patient Bloodtype Patient rh Status Prepregnancy Weight lbs Domestic Partner Domestic Partner Phone Father Name Traffic Circuit Engineer Status 07/02/20 1 CLOSED Fetus Data First Name Last Name Admitted to NICU Weight (g) Sex Living Outcome Pediatric Complications Fetus ID Race Codes Race Delivery Type 4167.14 [id number] M Full Term [id number] Primary Sergo Calculation Initial Sergo Date Initial Exam Date Initial Exam Provider Initial Ultrasound Date Last Menstrual Period Date Ultra Sound Weeks Gestation 0 Eighteen To Twenty Week Sergo Update Ultra Sound Date Fundal Height At Umbil Quickening Date Ultra Sound Latest Weeks Gestation Final Sergo Confirmed By Final Sergo Confirmed Date Final Sergo Date Ultra Sound Latest Days Gestation 0 0 Menstrual History Last Menstrual Date Menses Monthly On Bcp Conception Prior Menses Frequency Hcg Plus Date Menarche Onset Age Delivery Information Delivery Date Delivery Type Labor Anesthesia Weeks Gestation Incision Type Labor Labor Length Hrs Delivered By Post Complications Tubal Sterilization Discharge Date Comments 9 39 Oswaldo GDM Discharge Information Feeding Method Contraceptive Method Maternal HG B and HCT Levels
--- OUTSIDE RECORDS SUMMARY | 2025-05-13 01:00 | XMS_ITS | Clinical Summary ---
Author Organization [facility] Address [facility] [place] [address] Care Team Providers Care Residential Builder Name Role Phone Ricardo Pat MD Primary Care Provider [phone] Richard Villegas MD Unavailable [phone] Allergies No known active allergies Medications Cyanocobalamin (VITAMIN B-12) 1000 MCG SL Tab Acti ve multivitamin with minerals liquid Take 15 mLs by mouth daily. Active vitamin D3, cholecalciferol, 1000 UNIT Tab tablet Take 1 tablet by mouth daily. Active fish oil 1000 MG Cap capsule Take 1,000 mg by mouth 2 (two) times daily. Active Active Problems Problem Noted Date Diagnosed Date Cigarette nicotine dependence without complicati on 10/07/2021 Hand dermatitis 10/20/2016 Resolved Problems Problem Noted Date Diagnosed Date Resolved Date Encounter for preventive health examination 09/20/2016 10/07/2021 Fatigue 09/20/2016 10/07/2021 Gain of weight 09/20/2016 10/07/2021 Immunizations Immunization Administration Dates Next Due Influenza Adult (Generic) 07/16/2019,09/07/2016 Tdap (Generic) 07/16/2019 Family History Medical History Relation Comments Heart Disease Maternal Grandmother Hypertension Mother Relation Status Comments Father Alive Maternal Grandmother Mother Alive Social History Tobacco Use Types Packs/Day Years Used Date Smoking Tobacco: Every Day Cigarettes 0.1 1 Smokeless Tobacco: Never Tobacco Cessation:Counseling Given: Yes Comments:1-2 cigs/day Alcohol Use Standard Drinks/Week Comments Yes 0 (1 standard drink = 0.6 oz pur e alcohol) social 2-3 weekly drinks PHQ-2 Answer Date Recorded PHQ-2 Score - If the patient scores above 3, please move on to questions 3-9 0 10/07/2021 Comments No Sex and Gender Information Value Date Recorded Sex Assigned at Not on file Legal Sex Female 7:28 PM CDT Gender Identity Not on file Sexual Orientation Not on file Last Filed Vital Signs Vital Sign Reading Time Taken Comments Blood Pressure 112/64 10/07/2021 8:38 AM MEMBERSHIP ADVISOR Pulse 69 10/07/2021 8:38 AM MEMBERSHIP ADVISOR Temperature 36.3 C (97.4 F) 10/07/2021 8:38 AM MEMBERSHIP ADVISOR Respiratory Rate - - Oxygen Saturation 98% 10/07/2021 8:38 AM MEMBERSHIP ADVISOR Inhaled Oxygen Concentration - - Weight 78.6 kg (173 lb 3.2 oz) 10/07/2021 8:38 A M MEMBERSHIP ADVISOR Height 160 cm (5' 3) 10/07/2021 8:38 AM MEMBERSHIP ADVISOR Body Mass Index 30.68 10/07/2021 8:38 AM MEMBERSHIP ADVISOR Plan of Treatment Health Maintenance Due Date Last Done Comments Cervical Cancer Screening Pa p Smear (Age 30 to 64) Every 3 Years 1983 Annual Physical 1986 Hepatitis C 2001 Hepatitis B Vaccines (1 of 3 - 19+ 3-dose series) 2002 Pneumococcal Vaccine: Pediat rics (0 to 5 Years) and At-Risk Patients (6 to 49 Years) (1 of 2 - PCV) 2002 HPV Vaccines (1 - 3-dose SCD M series) 2010 Cervical Cancer Screening Pa p with HPV Testing (Age 30 to 64) Every 5 Years 2013 Cervical Cancer Screening with HPV 2013 Mammogram Screening 2023 COVID-19 Vaccine ( - 2023-2 5 season) 2024 DTaP, Tdap and Td Vaccines ( 2 - Td or Tdap) 07/16/2029 07/16/2019 Meningococcal B Vaccine Aged Out No l onger eligible based on patient's age to complete this topic Meningococcal Vaccine Aged Out No veronica andreina eligible based on patient's age to complete this topic RSV Immunizations Under 20 Months Aged Out No longer eligible based on patient's age to complete this topic Insurance Care Teams Residential Builder Relationship Specialty Start Date End Date Ricardo Pat MD PCP - General INTERNAL MEDICINE 10/07/21 Richard Villegas MD [address] [facility] [place] [address] Consulting Physician GROUP LEADER SEMICONDUCTOR PROCESSING ONCOLOGY 10/07/21
[2025-05-13 07:25] VITALS: BP 122/72; PULSE 76; RESP 16; TEMP 36.9; O2SAT 100
[2025-05-13] MEDS: LACTATED RINGERS 1,000 ML 30 ML IV CONT (07:25)
[2025-05-13] MEDS: ACETAMINOPHEN 500 MG TABLET 1000 MG PO (07:25)
--- NOTE | 2025-05-13 08:49 | WPDHPUPDATE1 ---
History and Physical Update Update Date/Time: 05/13/25 08:49 History and Physical has been reviewed, including an updated exam of the patient. There are NO changes in the patient's condition. Risks, benefits, and alternatives have been discussed and questions answered. Patient agrees to proceed with procedure.
--- NOTE | 2025-05-13 08:54 | P.PNAN_ITS ---
Anes - Initial Pre Proc Eval Procedure: Operation Date: 05/13/25 09:00 Proposed Procedures p Suction Dilatation and Curettage - Richard Villegas MD Date/Time: 05/13/25 08:54 Surgeon: Richard Villegas MD Pre Op Diagnosis: missed AB Patient Data Age: 39 Gender: F Height: 1.6 m Weight: 83 kg Last Vital Signs Temp 98.5 F 05/13/25 07:25 Pulse 76 05/13/25 07:25 Resp 16 05/13/25 07:25 BP 122/72 05/13/25 07:25 Pulse Ox 100 05/13/25 07:25 O2 Del Method Room Air 05/13/25 07:25 Allergies Allergy/AdvReac Type Severity Reaction Status Date / Time No Known Allergies Allergy Unknown Verified 05/13/25 08:28 Home Medications ?Medication ?Instructions ?Recorded ?Confirmed ?Type magnesium citrate,mag oxide 250 mg 250 mg PO HS 05/10/25 05/10/25 History capsule Laboratory Tests 05/13/25 07:39 Blood Type A Positive Antibody Screen Negative Screen Not Reportable Baby's Blood Type Not Reportable Baby's RUTH Not Reportable Doses of RhIg Required 0 Patient hx anesthesia problems: none Family hx anesthesia problems: none Results Review: All pre-operative results and documents have been reviewed as part of the pre- operative evaluation. [facility] Past Medical History Medical History Gestational diabetes Family History Family History Mother Hypertension Social History Social History Years smoked: 3 Smoking status: Former smoker Tobacco type: cigarettes Living arrangements: with family Gender identity (if verbalized by the patient): Female Spiritual care concerns: No Anes - Eval Final PreProcedure Day of Procedure 05/13/25 08:54 Patient weight: obese Lungs: normal air movement Airway: Mallampati scale class II Neurological: alert and oriented Last oral intake: >/= 8 hours ASA classification: II Emergent: no Anesthetic plan: proceed Anesthesia type and monitoring: general GIVS and standard monitoring Results Review: All pre-operative results and documents have been reviewed as part of the pre- operative evaluation. BMI 32. Informed Consent: The patient's anesthetic plan and its attendant risks and benefits were discussed with the patient/family/POA. Questions were solicited and answers provided to the satisfaction of the patient/family/POA.
--- NOTE | 2025-05-13 09:20 | S_PTH ---
PATIENT: Bel Brian LOC: [facility] U#:[id number] AGE/SX: 39/F ROOM: RE05/13/[address]: Richard Villegas MD : 1985 BED: DIS: 05/13/2025 SPEC #: [id number] RECD: 05/13/25 10:41 STATUS: VERONICA REQ #: [id number] YAHAIRA: 05/13/25 09:[address]: Richard Villegas DEPT: [facility] Surgical RECD BY: Odilia Hunt ENTERED: 05/13/25 10:41 SP TYPE: Surgical OTHR DR: UNKNOWN,DOCTOR Tissues: A - Products of Conception Procedures: Hematoxylin and Eosin Stain Gross and Microscopic Level 4
[2025-05-13 09:30] VITALS: BP 102/59; PULSE 68; RESP 18; O2SAT 99
--- NOTE | 2025-05-13 09:44 | SUR.PHASEII ---
Patient's blood type is A+. No Rhogam needed.
[2025-05-13 10:00] VITALS: BP 108/62; PULSE 65
--- NOTE | 2025-05-13 10:08 | W.PM.PROC2 ---
Procedure Note - Detailed Date of Procedure 05/13/25 Pre-op Diagnosis missed AB Post-op Diagnosis Same Procedure Performed Suction D&C Surgeon Richard Villegas MD Anesthesia MAC Indications missed Findings normal-appearing vulva vagina and cervix to. Moderate amount of products conception within the uterus. 8 cm uterus Description of Procedure the patient was taken the operating room. She was prepped and draped in dorsal lithotomy position after induction of mac anesthesia. A speculum was placed in the vagina. Cervix grasped with tenaculum. The cervix was dilated to about 1 cm Using Navarro dilators. A 8. [place] curved curette was used to perform suction D&C. The curette was introduced and vacuum was applied. The curette was removed over all surfaces of the intrauterine cavity multiple times. This was done until all the surfaces were clear and had the familiar grainy texture they can be felt through the instrument. A sharp curette was then used to curettage all the surfaces. The suction cup was then reapplied 1 more time to remove any debris. The instruments were removed. The speculum and tenaculum were removed. The patient tolerated the procedure well. She was taken recovery room stable condition. Estimated Blood Loss 50 Drains No Packing No Pathology Yes Complications No immediate complications Condition Stable Disposition PACU
[2025-05-13 10:30] VITALS: BP 117/61; PULSE 65
== END 2025-05-13 10:42 | disposition home or self-care (01) ==
PROVIDERS: Visit Provider Obstetrics & Gynecology
PROC: (CPT 59820; principal; 2025-05-13 09:00)
DX: O02.1 Missed abortion (principal)
CPT/HCPCS: 59820; 36415; 85461; 86850; 86900; 86901; 88305; A9270; J2250; J3010; J7120

== ENCOUNTER 2025-07-04 14:58 | Emergency (ER) | payer BC, SELFPAY ==
--- NOTE | ~2025-07-04 | CT_ITS ---
EXAMINATION: CT abdomen pelvis w con DATE: 07/04/2025 20:40 INDICATION: Left lower quadrant abdominal pain. TECHNIQUE: Computed tomography (CT) of the abdomen and pelvis was performed with 100 mL Omnipaque-350 intravenous contrast. Automated exposure control and iterative reconstruction technique were employed. The dose-length product was 513.61 mGy-cm. COMPARISON: None FINDINGS: Lung bases are clear. Heart size is normal. No pericardial or pleural effusion. Liver, gallbladder, pancreas, bilateral adrenal glands and right kidney are normal. 7 mm left renal cyst. 2.5 cm splenic cyst. Bowels including the appendix are normal. Fat-containing umbilical hernia. 1.1 square calcified nodule at the posterior body of the uterus likely degenerated uterine fibroid. Bladder is normal. Bilateral ovaries a pair normal with normal enhancement and contrast extending proximally along the bilateral gonadal veins. No abscess or free intraperitoneal gas or fluid. No pathologically enlarged abdominal or pelvic lymphadenopathy. Mild lower thoracic spondylosis. IMPRESSION: 1. No acute intra-abdominal/pelvic process. 2. Small calcified uterine fibroid. 3. Small fat-containing umbilical hernia. Reviewed, dictated and finalized at location A.
--- NOTE | ~2025-07-04 | US_ITS ---
EXAMINATION: US pelvic complete DATE: 07/04/2025 20:46 INDICATION: Left lower quadrant pain. Recent D&C. TECHNIQUE: Multiple transabdominal sonographic images of the pelvis were obtained. COMPARISON: None. FINDINGS: The uterus measures 9.7 x 3.3 x 6.2 cm. The endometrial complex measures 7 mm in thickness. The right ovary measures 3.3 x 3.1 x 1.5 cm. The left ovary measures 3.7 x 2.8 x 1.7 cm. Vascular flow identified in both ovaries on color Doppler. There is no free fluid in the pelvis. IMPRESSION: 1. Normal pelvic ultrasound. Reviewed, dictated and finalized at location A.
--- OUTSIDE RECORDS SUMMARY | 2025-07-04 15:02 | XMS_ITS | Clinical Summary ---
Author Organization [facility] Address [facility] [place] [address] Care Team Providers Care Desktop Technician Name Role Phone Ricardo Pat MD Primary Care Provider [phone] Richard Villegas MD Unavailable [phone] Allergies No known active allergies Medications Cyanocobalamin [...] Comments Blood Pressure 112/64 10/07/2021 8:38 AM EXERCISE EQUIPMENT REPAIR TECHNICIAN Pulse 69 10/07/2021 8:38 AM EXERCISE EQUIPMENT REPAIR TECHNICIAN Temperature 36.3 C (97.4 F) 10/07/2021 8:38 AM EXERCISE EQUIPMENT REPAIR TECHNICIAN Respiratory Rate - - Oxygen Saturation 98% 10/07/2021 8:38 AM EXERCISE EQUIPMENT REPAIR TECHNICIAN Inhaled Oxygen Concentration - - Weight 78.6 kg (173 lb 3.2 oz) 10/07/2021 8:38 A M EXERCISE EQUIPMENT REPAIR TECHNICIAN Height 160 cm (5' 3) 10/07/2021 8:38 AM EXERCISE EQUIPMENT REPAIR TECHNICIAN Body Mass Index 30.68 10/07/2021 8:38 AM EXERCISE EQUIPMENT REPAIR TECHNICIAN Plan of Treatment Health Maintenance Due Date [...] COVID-19 Vaccine ( - 2023-2 5 season) 2025 DTaP, Tdap and Td Vaccines ( 2 [...] to complete this topic Insurance Care Teams Desktop Technician Relationship Specialty Start Date End Date Ricardo Pat MD PCP - General INTERNAL MEDICINE 10/07/21 Richard Villegas MD [address] [place] [address] Consulting Physician HOOP DRIVING MACHINE OPERATOR ONCOLOGY 10/07/21
[2025-07-04 15:15] VITALS: BP 126/77; PULSE 84; RESP 16; TEMP 37.1; O2SAT 100
[2025-07-04 19:40] LABS: BEDSIDEPREGUCG Negative (Negative)
[2025-07-04 19:41] LABS: Hematocrit 39.9 % (37.0-47.0); Hemoglobin 13.3 g/dL (12.0-15.0); Immature Granulocyte Percent A 0.1 % (0-0.5); Lymphocytes Absolute Auto 2.40 K/mm3 (0.9-3.2); Mean Corpuscular HGB Conc 33.3 g/dl (32-36); Mean Corpuscular Hemoglobin 31.1 pg (26-34); Mean Corpuscular Volume 93.2 fl (80-100); Nucleated Red Blood Cells Absolute Auto 0.000 K/mm3 (0.0-0.012); Nucleated Red Blood Cells Perc 0.0 % (0.0-0.2); Platelet Count Result 298 k/mm3 (150-375); Red Blood Count 4.28 M/mm3 (4.2-5.4); White Blood Count 8.2 K/mm3 (4.5-10.0)
[2025-07-04 19:53] LABS: Alanine Aminotransferase 21 U/L (6-35); Albumin Level 4.7 g/dL (3.5-5.1); Alkaline Phosphatase 80 U/L (38-126); Anion Gap 8 mmol/L (4-12); Aspartate Amino Transferase 28 U/L (14-36); Bilirubin,Total 0.5 mg/dL (0.2-1.3); Blood Urea Nitrogen 12 mg/dL (7-17); Calcium 9.2 mg/dL (8.4-10.2); Carbon Dioxide 26 mmol/L (22-30); Chloride 104 mmol/L (98-107); Estimated CRCL calculation 107 ml/min; Estimated Glomerular Filt Rate > 60; Glucose 89 mg/dL (65-110); Lipase 51 U/L (23-300); Potassium 3.8 mmol/L (3.4-5.0); Sodium 138 mmol/L (137-145); Total Protein 8.4 g/dL (6.3-8.2)
[2025-07-04 20:04] LABS: Add Urine Microscopic? YES; Appearance Urine Clear (Clear); Glucose Urine UA Negative (Negative); Leukocyte Esterase Ur 2+ LEU/UL (Negative); Nitrate Urine Negative (Negative); Non Pathogenic Casts 0-2; Specific Grav Ur 1.015 (1.001-1.035)
--- NOTE | 2025-07-04 20:13 | ED.ABDPAIN ---
HPI - Abdominal Pain General Chief Complaint: Abdominal Pain Stated Complaint: Sent by OBGYN for US-lower Abd pain Time Seen by Provider: 07/04/25 19:28 Source: patient and old records reviewed Mode of arrival: ambulatory Limitations: no limitations History of Present Illness HPI narrative: Patient is a 39-year-old female who presents the ED with report of left lower abdominal pain. Patient reports she underwent D&C for a miscarriage [address] Villegas. She has been doing fairly well since the surgery with some intermittent cramping. Yesterday afternoon she experienced severe pain in her left lower abdomen. She went to sleep and did feel improved this morning, but pain returned around 9:00 a.m. this morning. Has been intermittent throughout the day, but slightly less severe than yesterday. She called Dr. Villegas and was referred to the ED for further evaluation. Denies nausea, vomiting, diarrhea, constipation, urinary complaints, fevers. She has not had her normal menstrual period since the D&C. Related Data Home Medications ?Medication ?Instructions ?Recorded ?Confirmed ?Last Taken ?Type magnesium citrate,mag oxide 250 mg 250 mg PO HS 05/10/25 05/10/25 Unknown History capsule Allergies Allergy/AdvReac Type Severity Reaction Status Date / Time No Known Allergies Allergy Unknown Verified 07/04/25 14:59 Review of Systems Review of Systems: All systems reviewed & are unremarkable except as noted in HPI. All systems reviewed & are unremarkable except as noted in HPI and below PMFSH Past Medical History Medical History (Updated 07/04/25 @ 21:44 by Elizabeth Quesada PA-C) Gestational diabetes Family History Family History Mother Hypertension Social History Social History Years smoked: 3 Smoking status: Former smoker Tobacco type: cigarettes Living arrangements: with family Gender identity (if verbalized by the patient): Female Spiritual care concerns: No Exam Narrative: GENERAL: Well appearing, obese with BMI of 32.4, non-toxic, in no acute distress. HEAD: Normocephalic, atraumatic. RESPIRATORY: Airway patent, respirations nonlabored. Clear to auscultation bilaterally, no rales, rhonchi, wheezing. CARDIOVASCULAR: Regular rate and rhythm without murmurs, rubs, or gallops. ABDOMINAL: Soft, mild tenderness diffusely throughout lower abdomen, more focal/severe tenderness in left lower quadrant, no rebound, nondistended. Normoactive BS. MUSCULOSKELETAL: Moves all extremities. No gross deformities. SKIN: Warm, dry, normal color. NEURO: A&O X3. Speech clear. PSYCHIATRIC: Appropriate mood and affect. Normal interaction. Course Vital Signs Vital signs: Vital Signs Temperature 98.7 F 07/04/25 15:15 Pulse Rate 84 07/04/25 15:15 Respiratory Rate 16 07/04/25 15:15 Blood Pressure 126/77 07/04/25 15:15 Pulse Oximetry 100 07/04/25 15:15 Oxygen Delivery Room Air 07/04/25 15:15 Temperature 98.7 F 07/04/25 15:15 Pulse Rate 84 07/04/25 15:15 Respiratory Rate 16 07/04/25 15:15 Blood Pressure 126/77 07/04/25 15:15 Pulse Oximetry 100 07/04/25 15:15 Oxygen Delivery Room Air 07/04/25 15:15 MDM - Abdominal Pain MDM Narrative Medical decision making narrative: Patient presented with left lower quadrant abdominal pain since yesterday, history of D&C 7 weeks ago. Vital signs are stable upon arrival. Laboratory studies without leukocytosis or anemia. Stable electrolytes. Normal LFTs and lipase. UA with 2+ leuk esterase, 6-10 WBC/RBC, 1+ leuk esterase. Sent for culture. She denies significant urinary complaints at this time, but will likely treat to to presence of lower abdominal pain. Urine is negative. CT scan of abdomen/pelvis was obtained and without acute findings. Does show small uterine fibroid. Pelvic ultrasound obtained and unremarkable. No evidence of torsion, good blood flow bilaterally, no evidence of ovarian cyst. Discussed lab and imaging findings, overall reassuring w/u. Discussed possibility of constipation/gas pains/UTI causing pain/musculoskeletal etiology. Discussed plan for abx and close OP f/u with PCP/OBGYN. Recommended patient continue Tylenol/ibuprofen, heating pad as needed for pain. Given strict return precautions. She is in agreement with plan. Feels comfortable going home. Given 1st dose of Keflex in the ED. Discharged in stable condition. Medical Records Attestation: I reviewed the patient's medical records. Lab Data Attestation: I reviewed the patient's lab results. 07/04/25 19:35 07/04/25 19:35 Labs: Lab Results 07/04/25 07/04/25 Range/Units 19:35 19:37 WBC 8.2 (4.5-10.0) K/mm3 RBC 4.28 (4.2-5.4) M/mm3 Hgb 13.3 D (12.0-15.0) g/dL Hct 39.9 (37.0-47.0) % MCV 93.2 (80-100) fl MCH 31.1 (26-34) pg MCHC 33.3 (32-36) g/dl RDW 12.3 (11.5-14.5) % Plt Count 298 D (150-375) k/mm3 MPV 9.5 (7.4-10.4) fl Immature Gran % (Auto) 0.1 (0-0.5) % Neut % (Auto) 59.7 (45.5-73.1) % Lymph % (Auto) 29.4 (18.3-44.2) % Kerr % (Auto) 7.7 (2.6-8.5) % Eos % (Auto) 2.5 (0-4.4) % Baso % (Auto) 0.6 (0.2-1.2) % Lymph # (Auto) 2.40 (0.9-3.2) K/mm3 Kerr # (Auto) 0.6 (0.1-0.6) K/mm3 Eos # (Auto) 0.2 (0-0.3) K/mm3 Baso # (Auto) 0.1 (0.0-0.1) K/mm3 Abs Immat Gran (auto) 0.01 (0.00-0.031) K/mm3 Absolute Neuts (auto) 4.9 (1.3-6.7) K/mm3 Absolute Nucleated RBC 0.000 (0.0-0.012) K/mm3 Nucleated RBC % 0.0 (0.0-0.2) % Sodium 138 (137-145) mmol/L Potassium 3.8 (3.4-5.0) mmol/L Chloride 104 (98-107) mmol/L Carbon Dioxide 26 (22-30) mmol/L Anion Gap 8 (4-12) mmol/L BUN 12 (7-17) mg/dL Creatinine 0.60 L (0.7-1.0) mg/dL Estim Creat Clear Calc 107 ml/min Estimated GFR > 60 (59 - ) Glucose 89 (65-110) mg/dL Calcium 9.2 (8.4-10.2) mg/dL Total Bilirubin 0.5 (0.2-1.3) mg/dL AST 28 (14-36) U/L ALT 21 (6-35) U/L Alkaline Phosphatase 80 (38-126) U/L Total Protein 8.4 H (6.3-8.2) g/dL Albumin 4.7 (3.5-5.1) g/dL Lipase 51 (23-300) U/L Urine Color Yellow (Yellow) Urine Appearance Clear (Clear) Urine pH 6.5 (5.0-9.0) Ur Specific [place] 1.015 (1.001-1.035) Urine Protein Negative (Negative) mg/dL Urine Glucose (UA) Negative (Negative) mg/dL Urine Ketones Negative (Negative) mg/dL Ur Blood (Man) 1+ H (Negative) Urine Nitrate Negative (Negative) Urine Bilirubin Negative (Negative) Urine Urobilinogen 0.2 (<2.0) mg/dL Leukocyte Esterase Rfl 2+ H (Negative) AVE/UL Urine RBC 6-10 H (0-2) /hpf Urine WBC 6-10 H (0-3) /hpf Ur Squamous Epith Cells Few (Few) /hpf Urine Bacteria 1+ H /hpf Urine Casts 0-2 POC Urine HCG, Qual Negative (Negative) Imaging Data Attestation: I personally reviewed and interpreted this imaging study as follows: Radiologist's impression: ITS Impressions Abdomen/Pelvis CT 07/04/25 20:57 IMPRESSION: 1. No acute intra-abdominal/pelvic process. 2. Small calcified uterine fibroid. 3. Small fat-containing umbilical hernia. Pelvis Ultrasound 07/04/25 21:21 IMPRESSION: 1. Normal pelvic ultrasound. Discharge Plan Discharge Clinical Impression: Left lower quadrant abdominal pain UTI (urinary tract infection) Qualifiers: Urinary tract infection type: acute cystitis Hematuria presence: with hematuria Qualified Code(s): N30.01 - Acute cystitis with hematuria Patient Disposition: Home Condition: Stable Instructions: Antibiotic Form, Urinary Tract Infection in Women (ED), Abdominal Pain (ED) Additional Instructions: Your workup here was reassuring. Take antibiotics as prescribed for urinary tract infection. Stay well hydrated. Recommend Tylenol/ibuprofen, heating pad as needed for pain. Follow-up with your primary care doctor and/or OBGYN for further evaluation. Return to the ED if you experience worsening or severe pain, difficulty urinating, persistent fevers, unable to keep down food or drink, or any other symptoms of concern. Patient Language: Maltese Prescriptions: New cephalexin 500 mg capsule 500 mg PO Q6H 7 Days Qty: 28 0RF No Action magnesium citrate,mag oxide 250 mg capsule 250 mg PO HS Follow-up/Referrals: Richard Villegas MD [Physician, [facility]] Referral Note: Luis E Dudley MD [Physician, Family Practice] Referral Note: PRIMARY CARE PHYSICIAN,[facility] STILL OPERATOR [Primary Care Provider, Internal Medicine] Time of Disposition: 21:45
[2025-07-04] MEDS: CEPHALEXIN 500 MG CAPSULE PO (21:54)
== END 2025-07-04 21:58 | disposition home or self-care (01) ==
PROVIDERS: Emergency Medicine; Emergency Provider Physician Assistant
DX: N30.01 Acute cystitis with hematuria (principal); R10.32 Left lower quadrant pain; Z87.891 Personal history of nicotine dependence; D25.9 Leiomyoma of uterus, unspecified; K42.9 Umbilical hernia without obstruction or gangrene
CPT/HCPCS: 36415; 74177; 76856; 80053; 81001; 81025; 83690; 85025; 87077; 87086; 87186; 99284; A9270; Q9967